=== PATIENT | female | born 1985 | race Caucasian/White ===

== ENCOUNTER 2023-10-20 18:58 | Inpatient (IN) | payer OTHER, SELFPAY ==
[2023-10-20] VITALS (9 sets, daily range): BP systolic 83–124; BP diastolic 34–58; BMI 31.5; BMI 31.4
--- NOTE | 2023-10-20 12:56 | ED.GENMED ---
History of Present Illness
<Chey Barcenas PA-C - Last Filed: 10/20/23 21:11>
General
Chief Complaint: Abdominal Pain
Source: patient
Exam Limitations: none
Time Seen by Provider: 10/20/23 12:53
Nursing documentation reviewed up to this point in time: agreed with
Travel History
Have you had any contact with someone who has COVID-19?: No
Do you have any symptoms of coronavirus? Fever > 100 degrees, chills, cough, shortness of breath, sore throat, loss of taste or smell, muscle aches, or headache?: No
History of Present Illness
History of Present Illness:
Patient is a 38-year-old female presenting for evaluation of abdominal pain. Patient initially noticed abdominal pain yesterday afternoon around 4 PM while watching one of her children's baseball games. She endorses sharp stabbing pain around her
bellybutton. Symptoms persisted throughout the evening but she was able to get some sleep overnight. This morning, patient states pain became much more severe and migrated to the right lower quadrant. She endorses acute onset nausea and frequent
vomiting few hours ago. She reports chills, no known fever. Patient denies any chest pain, shortness of breath, diarrhea, constipation, or urinary symptoms.
Patient is currently on her menstrual period. No history of ovarian cysts.
Review of Systems
<Chey Barcenas PA-C - Last Filed: 10/20/23 21:11>
Review of Systems
Allergies reviewed?: Yes
All Other Systems: ROS reviewed and negative except as documented in HPI and ROS
Phy Exam
<Chey Barcenas PA-C - Last Filed: 10/20/23 21:11>
Physical Exam
Physical Exam:
Vitals: Patient's vital signs are stable. Afebrile
General: Patient is uncomfortable appearing, writhing in pain. Nontoxic-appearing
Skin: Warm and dry, no rashes or lesions
Head: Normocephalic, atraumatic
Eyes: Sclera nonicteric. EOMs intact. No nystagmus.
Throat: Protecting airway
Neck: Normal ROM, no cervical spine tenderness, no meningismus
Cardiac: Regular rate and rhythm, no murmurs.
Pulm: Normal respiratory effort, no wheezes, rales, rhonchi heard on exam.
Abdomen: Abdomen soft. Moderate to severe abdominal tenderness in right lower quadrant at McBurney's point with voluntary guarding. No CVA tenderness
Extremities: No evidence of cyanosis or edema. Good distal pulses
Neuro: AAOx3. CN II-XII intact. No focal neurologic deficits.
Psychiatric: Normal affect.
Course
<Chey Barcenas PA-C - Last Filed: 10/20/23 21:11>
Orders/Labs/Results
Orders:
Orders
10/20/23 Breakfast
Clear Liquid
At Your Request: Full Participation
Does patient need a safe tray?: No
10/20/23 13:04
0.9% Sodium Chloride 1000 ml [Nss] 1,000 ml IV BOLUS
Morphine Sulfate 2 mg IV NOW STA
Ondansetron Injectable [Zofran] 4 mg IV NOW STA
Test Result ONCE
10/20/23 13:06
CT Abd/Pel (IV only)-DH only Urgent
Comment:
Reason For Exam: RLQ pain +N/V
10/20/23 13:08
Complete Blood Count/With Diff Urgent
Comprehensive Metabolic Panel Urgent
Fentanyl, Urine Urgent
HCG, Serum Qualitative Screen Urgent
Lipase Urgent
Manual Differential Urgent
Urinalysis Reflex To Culture Urgent
Date Specimen was Collected: 10/20/23
Time Specimen was Collected: 13:07
Urine Drug Abuse Screen Urgent
Date Specimen was Collected: 10/20/23
Time Specimen was Collected: 13:07
Urine Microscopic Reflex Cult Urgent
10/20/23 13:23
Morphine Sulfate 2 mg IV NOW STA
10/20/23 14:16
0.9% Sodium Chloride 1000 ml [Nss] 1,000 ml IV BOLUS
HYDROmorphone [Dilaudid] 1 mg IV NOW STA
Ondansetron Injectable [Zofran] 4 mg IV NOW STA
10/20/23 15:57
Ketorolac [Toradol] 15 mg IV NOW STA
10/20/23 18:02
STOOL [C difficile Antigen & Toxins] Urgent
MARY JANE Source: Feces/Stool
Specimen Description:
Stool Culture Urgent
MARY JANE Source: Feces/Stool
Specimen Description:
Stool For WBC Urgent
MARY JANE Source: Feces/Stool
Specimen Description:
10/20/23 18:03
Norovirus by PCR Urgent
MARY JANE Source: Feces/Stool
Specimen Description:
10/20/23 18:23
Blood Culture Q30M
MARY JANE Source: Blood/Venous
Specimen Description:
Blood Culture Q30M
MARY JANE Source: Blood/Venous
Specimen Description:
10/20/23 18:34
Admit/Transfer Patient As Directed
Co-Sign Provider:
Level of Care: Inpatient admission
Assign to:: Medical/Surgical
Physician / Group: Amira
Diagnosis: Intactable Abdominal Pain, SIRS
Reason for Hospitalization: IV pain meds, IV abx
Expected length of stay greater than two midnights?: Yes
ELOS- Estimated Length of Stay in days: 3
I certify the patient meets the requirements for IP care: Yes
Code Status As Directed
Resuscitation Status: Full Code
10/20/23 18:58
Add On- LAB Urgent
Tests Added?: urine drug screen
10/20/23 20:39
0.9% Sodium Chloride 1000 ml [Nss] 1,000 ml IV 100 mls/hr
Acetaminophen [Tylenol] 650 mg PO Q4HPRN PRN
HYDROmorphone [Dilaudid] 0.25 mg IV Q3HPRN PRN
Ondansetron Injectable [Zofran] 4 mg IV Q6HPRN PRN
10/20/23 20:39
Activity As Directed
Activity Level: Out of Bed-Early Mobility
With Assistance
I&O [Intake/ Output] As Directed
Frequency: q12h
Pneumatic Compression Sleeves As Directed
Type: Knee high
Vital Signs As Directed
Frequency: Per unit guidelines
DX Deep Vein Thrombosis Video Routine
10/20/23 22:00
Ketorolac [Toradol] 15 mg IV Q6HPRN PRN
Piperacillin/Tazo 3.375 Gram [Zosyn] 3.375 gram in 50 ml IV Q6H
10/21/23 06:00
Basic Metabolic Panel IN AM
Complete Blood Count/No Diff IN AM
Magnesium IN AM
10/21/23 08:00
Pantoprazole [Protonix IV] 40 mg IV DAILY
Abnormal Lab Results
10/20/23
13:08
WBC 23.8 H 10^3/uL
(4.8-10.8)
MCV 78.6 L fL
(81.0-99.0)
Abs Neuts (Manual) 22.8 H 10^3/uL
(1.4-6.5)
Segmented Neutrophils 89 H %
(42-75)
Band Neutrophils 7 H %
(0-3)
Lymphocytes (Manual) 2 L %
(20-51)
Monocytes (Manual) 1 L %
(2-9)
Glucose 108 H mg/dl
(70-99)
Urine Ketones 1+ A
(Negative)
Ur Occult Blood Reflex 2+ A
(Negative)
Leukocyte Esterase Rfl Trace A
(Negative)
Urine RBC 3-6 A /HPF
(0-2)
Urine Bacteria (Reflex) Few A
(Negative)
Urine Opiates Screen Positive H
(Negative)
Ur Barbiturates Screen Positive H
(Negative)
10/20/23 13:08
10/20/23 13:08
Vital Signs
Initial and Last Documented VS:
Initial Vital Signs
Temp Pulse Resp BP Pulse Ox
98.8 F 99 24 95/56 99
10/20/23 12:34 10/20/23 12:34 10/20/23 12:34 10/20/23 12:34 10/20/23 12:34
Last Documented Vital Signs
Temp Pulse Resp BP Pulse Ox
98.3 F 74 16 124/58 96
10/20/23 20:24 10/20/23 20:24 10/20/23 20:24 10/20/23 20:24 10/20/23 20:24
<Josh Peña, DO - Last Filed: 10/20/23 14:18>
Orders/Labs/Results
Orders:
Orders
10/20/23 Breakfast
Clear Liquid
At Your Request: Full Participation
Does patient need a safe tray?: No
10/20/23 13:04
0.9% Sodium Chloride 1000 ml [Nss] 1,000 ml IV BOLUS
Morphine Sulfate 2 mg IV NOW STA
Ondansetron Injectable [Zofran] 4 mg IV NOW STA
Test Result ONCE
10/20/23 13:06
CT Abd/Pel (IV only)-DH only Urgent
Comment:
Reason For Exam: RLQ pain +N/V
10/20/23 13:08
Complete Blood Count/With Diff Urgent
Comprehensive Metabolic Panel Urgent
Fentanyl, Urine Urgent
HCG, Serum Qualitative Screen Urgent
Lipase Urgent
Manual Differential Urgent
Urinalysis Reflex To Culture Urgent
Date Specimen was Collected: 10/20/23
Time Specimen was Collected: 13:07
Urine Drug Abuse Screen Urgent
Date Specimen was Collected: 10/20/23
Time Specimen was Collected: 13:07
Urine Microscopic Reflex Cult Urgent
10/20/23 13:23
Morphine Sulfate 2 mg IV NOW STA
10/20/23 14:16
0.9% Sodium Chloride 1000 ml [Nss] 1,000 ml IV BOLUS
HYDROmorphone [Dilaudid] 1 mg IV NOW STA
Ondansetron Injectable [Zofran] 4 mg IV NOW STA
10/20/23 15:57
Ketorolac [Toradol] 15 mg IV NOW STA
10/20/23 18:02
STOOL [C difficile Antigen & Toxins] Urgent
MARY JANE Source: Feces/Stool
Specimen Description:
Stool Culture Urgent
MARY JANE Source: Feces/Stool
Specimen Description:
Stool For WBC Urgent
MARY JANE Source: Feces/Stool
Specimen Description:
10/20/23 18:03
Norovirus by PCR Urgent
MARY JANE Source: Feces/Stool
Specimen Description:
10/20/23 18:23
Blood Culture Q30M
MARY JANE Source: Blood/Venous
Specimen Description:
Blood Culture Q30M
MARY JANE Source: Blood/Venous
Specimen Description:
10/20/23 18:34
Admit/Transfer Patient As Directed
Co-Sign Provider:
Level of Care: Inpatient admission
Assign to:: Medical/Surgical
Physician / Group: Amira
Diagnosis: Intactable Abdominal Pain, SIRS
Reason for Hospitalization: IV pain meds, IV abx
Expected length of stay greater than two midnights?: Yes
ELOS- Estimated Length of Stay in days: 3
I certify the patient meets the requirements for IP care: Yes
Code Status As Directed
Resuscitation Status: Full Code
10/20/23 18:58
Add On- LAB Urgent
Tests Added?: urine drug screen
10/20/23 20:39
0.9% Sodium Chloride 1000 ml [Nss] 1,000 ml IV 100 mls/hr
Acetaminophen [Tylenol] 650 mg PO Q4HPRN PRN
HYDROmorphone [Dilaudid] 0.25 mg IV Q3HPRN PRN
Ondansetron Injectable [Zofran] 4 mg IV Q6HPRN PRN
10/20/23 20:39
Activity As Directed
Activity Level: Out of Bed-Early Mobility
With Assistance
I&O [Intake/ Output] As Directed
Frequency: q12h
Pneumatic Compression Sleeves As Directed
Type: Knee high
Vital Signs As Directed
Frequency: Per unit guidelines
DX Deep Vein Thrombosis Video Routine
10/20/23 22:00
Ketorolac [Toradol] 15 mg IV Q6HPRN PRN
Piperacillin/Tazo 3.375 Gram [Zosyn] 3.375 gram in 50 ml IV Q6H
10/21/23 06:00
Basic Metabolic Panel IN AM
Complete Blood Count/No Diff IN AM
Magnesium IN AM
10/21/23 08:00
Pantoprazole [Protonix IV] 40 mg IV DAILY
Abnormal Lab Results
10/20/23
13:08
WBC 23.8 H 10^3/uL
(4.8-10.8)
MCV 78.6 L fL
(81.0-99.0)
Abs Neuts (Manual) 22.8 H 10^3/uL
(1.4-6.5)
Segmented Neutrophils 89 H %
(42-75)
Band Neutrophils 7 H %
(0-3)
Lymphocytes (Manual) 2 L %
(20-51)
Monocytes (Manual) 1 L %
(2-9)
Glucose 108 H mg/dl
(70-99)
Urine Ketones 1+ A
(Negative)
Ur Occult Blood Reflex 2+ A
(Negative)
Leukocyte Esterase Rfl Trace A
(Negative)
Urine RBC 3-6 A /HPF
(0-2)
Urine Bacteria (Reflex) Few A
(Negative)
Urine Opiates Screen Positive H
(Negative)
Ur Barbiturates Screen Positive H
(Negative)
10/20/23 13:08
10/20/23 13:08
Vital Signs
Initial and Last Documented VS:
Initial Vital Signs
Temp Pulse Resp BP Pulse Ox
98.8 F 99 24 95/56 99
10/20/23 12:34 10/20/23 12:34 10/20/23 12:34 10/20/23 12:34 10/20/23 12:34
Last Documented Vital Signs
Temp Pulse Resp BP Pulse Ox
98.3 F 74 16 124/58 96
10/20/23 20:24 10/20/23 20:24 10/20/23 20:24 10/20/23 20:24 10/20/23 20:24
<Chey Barcenas PA-C - Last Filed: 10/20/23 21:11>
MDM/Problems Addressed
Differential Diagnosis Includes:
Not limited to: Appendicitis, pyelonephritis, UTI, kidney stone, ovarian cyst, viral gastroenteritis, doubt ovarian torsion
MDM/Problems Addressed:
38-year-old female presenting with acute onset right lower quadrant abdominal pain with associated nausea vomiting. Does endorse a few episodes of diarrhea. Chills but no known fever. Blood pressure soft, otherwise vital sign stable. Patient is
afebrile on arrival. Physical exam as above. Patient is very uncomfortable appearing, curled up writhing in pain on initial examination. Patient has moderate to severe tenderness of right lower quadrant at McBurney's point with voluntary
guarding. No rebound tenderness noted. Patient is perfusing well, good distal pulses. Heart regular rate and rhythm. Lungs clear bilaterally. Will check basic labs, urinalysis. Will check CT abdomen/pelvis. Morphine, Zofran, fluids. Will
closely monitor and reassess.
Labs noted. Patient has a significant leukocytosis of 23.8 with a left shift. No other clinically significant abnormalities. test negative. Urinalysis shows no signs of infection. There was some blood seen on urinalysis�although
patient is currently on her menstrual period so do not feel that this correlates clinically. CT pending. Patient remains significantly uncomfortable after morphine administration. Will give additional dose of morphine and reassess.
CT abdomen/pelvis report noted. No acute abnormalities noted within the abdomen. Appendix was visualized and noted to be normal. No abnormal findings in pelvis. Into reassess patient she remains in pain. Attending physician did give her an
additional 1 mg Dilaudid and another bag of fluids. Will trial patient on toleration of p.o. intake.
Into reassess patient. Patient does report some improvement following Dilaudid�although on repeat abdominal exam she is still significantly tender in right lower quadrant. Patient was unable to tolerate water, vomited multiple times. Did consider
checking abdominal ultrasound and pelvic ultrasound for further evaluation but after speaking with radiology radiologist does not feel studies are indicated at this time given visualization on CT. Given intractable abdominal pain and inability to
tolerate p.o. intake along with significant leukocytosis�will admit to hospitalist for further evaluation/management. Discussed with patient. Discussed with hospitalist
Chronic conditions affecting care:
N/A
Acute Exacerbation and/or Progression of Chronic Illness:
N/A
<Chey Barcenas PA-C - Last Filed: 10/20/23 21:11>
*Radiology
Radiology exam reviewed: preliminary read by ED provider and radiology read reviewed
*Pulse Oximetry
Patient hypoxic: no
*EKG
Interpreted by ED Provider?: NA
*Coil Tier Interpretation
Rate: Coil Tier- N/A
*Critical Care Note
Total Time (30-74mins, 75-104mins- exclusive of procedures): Not Applicable
<Chey Barcenas PA-C - Last Filed: 10/20/23 21:11>
Patient Management
Discussion with other providers: Hospitalist
ED Attending Note
<Chey Barcenas PA-C - Last Filed: 10/20/23 21:11>
-
Portions of this chart may have been created with voice recognition software.� Occasional wrong word or��sound alike� substitutions may have occurred due to the inherent limitations of voice recognition software.
<Josh Peña DO - Last Filed: 10/20/23 14:18>
ED Attending Note
Patient seen and examined by attending physician: Yes
I performed the substantive portion of visit, reviewed & personally made and approve the management plan that is documented in note by myself or BARB.: Yes
ED Attending Note:
Seen with PA examined independently agree with assessment and plan nausea vomiting diarrhea crampy abdominal pain, worse in the right lower abdomen white count noted CT noted report pending still looks uncomfortable after morphine we will try
weight-based Dilaudid dose, with some Zofran
Discharge Plan
Departure
Patient Disposition: Admit
Date of Disposition: 10/20/23
Time of Disposition: 17:33
Presentation/result/management discussed w/ accepting MD/DO: Hospitalist
Discharge Problem:
Intractable abdominal pain, Leukocytosis, Intractable nausea and vomiting
Interventions
Interventions:
*Risk Screen - Suicide Last Done: 10/20/23 20:28
*General Assessment Last Done: 10/20/23 13:04
*Neglect/Abuse Screening Last Done: 10/20/23 13:04
ED- Fall Risk Assessment Last Done: 10/20/23 20:05
*ED COVID-19 Vaccine History Last Done: 10/20/23 20:28
*Nursing Disposition Last Done: 10/20/23 20:05
EL-[facility] Assessment Last Done: 10/20/23 13:06
Discharge Date and Time
Discharge Date/Time: 10/20/23 20:05
[2023-10-20] MEDS: MORPHINE SULFATE 2 MG IV ×2 (13:09→13:27)
[2023-10-20] MEDS: NSS 1000 IV ×3 (13:09→22:14)
[2023-10-20] MEDS: ZOFRAN 4 MG IV ×2 (13:09→14:29)
[2023-10-20 13:20] LABS: Hematocrit 37.2 % (37.0-47.0); Mean Corp Hgb Conc. 34.9 g/dL (33.0-37.0); Mean Corpuscular Hgb 27.5 pg (27.0-31.0); Mean Corpuscular Volume 78.6 fL (81.0-99.0); Mean Platelet Volume 9.3 fL (7.4-10.4); Platelet Count 257 10^3/uL (130-400); Red Blood Cell Count 4.73 10^6/uL (4.20-5.40); Red Cell Dist. Width 12.4 % (11.5-14.5); White Blood Cell Count 23.8 10^3/uL (4.8-10.8)
[2023-10-20 13:23] LABS: Urine Albumin Trace (Neg - Trace); Urine Bilirubin Negative (Negative); Urine Character Clear (Clear); Urine Color Yellow; Urine Glucose Negative (Negative); Urine Ketone 1+ (Negative); Urine Leukocyte Trace (Negative); Urine Nitrite Negative (Negative); Urine Occult Blood 2+ (Negative); Urine Specific Gravity 1.015 (<1.030); Urine Urobilinogen Negative (Neg - 1+); Urine pH 6.5 (5.0-9.0)
[2023-10-20 13:33] LABS: HCG, Serum Qualitative Screen Negative
[2023-10-20 13:34] LABS: ALT (SGPT) 22 U/L (0-35); AST (SGOT) 31 U/L (14-36); Albumin 4.2 g/dl (3.5-5.0); Alkaline Phosphatase 93 U/L (38-126); Blood Urea Nitrogen 14 mg/dl (7-17); Calcium 9.6 mg/dl (8.4-10.2); Carbon Dioxide 24 mmol/L (22-30); Chloride 106 mmol/L (98-107); Estimated Creatinine Clearance 100 ml/min; Glucose 108 mg/dl (70-99); Lipase 52 U/L (23-300); Potassium 4.1 mmol/L (3.5-5.1); Sodium 139 mmol/L (135-145); Total Bilirubin 0.7 mg/dl (0.2-1.3); Total Protein 7.2 g/dl (6.3-8.2); eGFR > 60.00
[2023-10-20 13:39] LABS: Urine Bacteria Few (Negative)
[2023-10-20 13:48] LABS: Absolute Neutrophils -Man Diff 22.8 10^3/uL (1.4-6.5); Band Neutrophils 7 % (0-3); Lymphocytes 2 % (20-51); Segmented Neutrophils 89 % (42-75)
[2023-10-20 13:49] LABS: Metamyelocytes 1 % (-); Monocytes 1 % (2-9); Platelets Checked Yes
[2023-10-20 13:50] LABS: Normal RBC Morphology Yes; Total Cells Counted 100
[2023-10-20] MEDS: DILAUDID 1 MG IV (14:29)
[2023-10-20] MEDS: TORADOL 15 MG IV (16:12)
--- NOTE | 2023-10-20 18:20 | HPS.HSE ---
Family Physician
-
Family Physician: Charli Garber
Chief Complaint
-
Abdominal Pain
History of Present Illness
This is a 38 year old female without significant past medical history who presents to the emergency department with abdominal pain. The patient reports she started experiencing cramping pain in her right lower quadrant yesterday around 4pm. Today,
she is experiencing 10/10 RLQ abdominal pain, nausea, vomiting, and diarrhea, prompting her to present to the emergency department. The patient notes today she had sweats and chills but denies fever. She reports a recent ear infection that she is
treating with Cefdinir with 2 days left. The patient reports she is currently menstruating and that she has a history of long, heavy periods with cramping, but notes this is much worse than usual. She denies chest pain, hematemesis, hematochezia,
urinary frequency/urgency, dysuria.
Medical History
Past Medical History
Past Medical History: Reports None
Past Surgical History: Reports None
Social History
Tobacco: Non-smoker
Alcohol: None
Personal:
Family History
Family History: Not pertinent
Allergies / Home Medications
Allergies reflects when Allergies were last updated in [facility].
Home Medications with original date entered in [facility]
Allergy/Medication List:
Allergies
Allergy/AdvReac Type Severity Reaction Status Date / Time
doxycycline Allergy Severe Unknown Verified 10/20/23 12:33
Home Medications
cetirizine 10 mg tablet (Zyrtec) 10 mg PO DAILY 10/20/23
tranexamic acid 500 mg tablet 1,500 mg PO PRN PRN heavy bleeding 10/20/23
Review of Systems
-
A 12 point ROS was completed and negative except as noted: Yes
Constitutional: Reports Chills; Denies Fever
Respiratory: Denies Cough or Trouble Breathing
Cardiac: Denies Chest Pain or Palpitations
Abdomen/GI: Reports See HPI
Physical Exam
Vital Signs
Vital Signs
Temp Pulse Resp BP Pulse Ox
98.8 F 83 16 109/50 98
10/20/23 12:34 10/20/23 17:30 10/20/23 17:30 10/20/23 17:00 10/20/23 17:30
Physical Exam
General: Well Developed, Well Nourished and Other (Appears in pain)
HEENT: NormoCephalic, Anicteric and Other (Mucous Membranes are slightly dry)
Respiratory: Clear and Non Labored Respirations
Cardiac: S1/S2 and Regular Rhythm; No Tachycardia
GI: Soft and Tender (Signficant tenderness right lower quadrant with voluntary guarding)
Rectal: Deferred by Provider
Musculoskeletal: No Clubbing, No Cyanosis and No Edema
Skin: Warm and Dry
Neuro: Awake, Alert, Oriented and Nonfocal/grossly intact
Psych: Calm
Laboratory Results
-
10/20/23 13:08
10/20/23 13:08
Laboratory Results
Total Bilirubin 0.7 mg/dl (0.2-1.3) 10/20/23 13:08
AST 31 U/L (14-36) 10/20/23 13:08
ALT 22 U/L (0-35) 10/20/23 13:08
Alkaline Phosphatase 93 U/L (38-126) 10/20/23 13:08
Lipase 52 U/L (23-300) 10/20/23 13:08
Data Reviewed
-
Lab Data: Labs Reviewed by me
Impression/Plan
-
Severe Abdominal Pain with Nausea/Vomiting/Diarrhea
-Check stool studies including stool culture and stool for C Diff
-Allow clear liquids
-Continue Zofran for nausea
-Continue Toradol for moderate pain and Dilaudid for severe pain
DVT proph: SCDs
Code Status: Full COde
--- NOTE | 2023-10-20 18:31 | W.PN.UPDATE ---
Update Note
Progress Note Update
38 year old female without significant past medical history who presented to the emergency department with abdominal pain. The patient reports she started experiencing cramping pain in her right lower quadrant yesterday around 4pm. Today, she is
experiencing 10/10 RLQ abdominal pain, nausea, vomiting, and diarrhea, prompting her to present to the emergency department. The patient noted today she had sweats and chills but denies fever. She reports a recent ear infection that she is treating
with Cefdinir with 2 days left. The patient reports she is currently menstruating and that she has a history of long, heavy periods with cramping, but notes this is much worse than usual. She denies chest pain, hematemesis, hematochezia, urinary
frequency/urgency, dysuria.
A/P:
# Severe right lower Abdominal Pain with Nausea/Vomiting/Diarrhea
Check stool studies including stool culture and stool for C Diff
Allow clear liquids
Continue Zofran for nausea
Continue Toradol for moderate pain and Dilaudid for severe pain
IVF
# Leukocytosis likely reactive
But will check blood culture, cover with empiric Zosyn for now
trend WBC
DVT proph: SCDs
Code Status: Full COde
[2023-10-20 19:46] LABS: Amphetamines Negative (Negative); Opiates Positive (Negative)
[2023-10-20 19:47] LABS: Barbiturates Positive (Negative); Benzodiazepines Negative (Negative); Buprenorphine Negative (Negative); Cocaine Negative (Negative); Marijuana Negative (Negative); Methadone Negative (Negative); Methamphetamines Negative (Negative); Phencyclidine Negative (Negative); Tricyclic Antidepressants Negative (Negative)
[2023-10-20 20:06] LABS: Fentanyl, Urine Negative (Negative)
[2023-10-20] MEDS: ZOSYN 50 IV (22:14)
[2023-10-21] MEDS: ZOSYN 50 IV ×4 (04:12→21:54)
[2023-10-21 05:43] LABS: Hematocrit 31.6 % (37.0-47.0); Mean Corp Hgb Conc. 34.8 g/dL (33.0-37.0); Mean Corpuscular Hgb 27.4 pg (27.0-31.0); Mean Corpuscular Volume 78.8 fL (81.0-99.0); Mean Platelet Volume 9.3 fL (7.4-10.4); Platelet Count 228 10^3/uL (130-400); Red Blood Cell Count 4.01 10^6/uL (4.20-5.40); Red Cell Dist. Width 12.6 % (11.5-14.5); White Blood Cell Count 9.5 10^3/uL (4.8-10.8)
[2023-10-21 06:46] LABS: Blood Urea Nitrogen 12 mg/dl (7-17); Calcium 8.7 mg/dl (8.4-10.2); Carbon Dioxide 24 mmol/L (22-30); Chloride 108 mmol/L (98-107); Estimated Creatinine Clearance 89 ml/min; Glucose 89 mg/dl (70-99); Potassium 4.1 mmol/L (3.5-5.1); Sodium 138 mmol/L (135-145); eGFR > 60.00
[2023-10-21 07:00] VITALS: BP 119/60
--- NOTE | 2023-10-21 08:29 | W.PN.HOSP.TC ---
Today's Communication/Plan
-
CLD. Abx. GI eval.
Assessment / Plan
Assessment / Plan
Physical exam:
General: Well Developed, Well Nourished and No Apparent Distress
HEENT: Normocephalic, Atraumatic and Moist Mucous Membranes
Respiratory: Clear to Auscultation; Negative Wheezes, Rales or Rhonchi
Cardiac: Regular Rhythm and S1/S2
GI: Soft, tender RLQ and Nondistended
Musculoskeletal: No Clubbing, No Cyanosis and No Edema
Neuro: Awake, Alert and Oriented
Psych: Calm
A/P:
# Severe right lower Abdominal Pain with Nausea/Vomiting/Diarrhea
Check stool studies including stool culture and stool for C Diff
Allow clear liquids
Continue Zofran for nausea
Continue Toradol for moderate pain and Dilaudid for severe pain
IVF
GI consult
consider pelvic US if persists but ct abd unremarkable. Also appendix ok on ct.
# Leukocytosis likely reactive
But will check blood culture, cover with empiric Zosyn for now
trend WBC
DVT proph: SCDs
Code Status:
Full Code
Anticipated Discharge: 24 - 48 hours
Subjective/Interval History
-
Date of Service: October 21, 2023
murphy feels better overall but still abd pain persists, no fever. She has dysmenorrhea which it is usual for her.
Objective Data
-
Labs:
Laboratory Results
10/21/23
05:38
WBC 9.5
Hgb 11.0 L
Hct 31.6 L
Plt Count 228
Sodium 138
Potassium 4.1
Chloride 108 H
Carbon Dioxide 24
BUN 12
Creatinine 1.0
Glucose 89
Calcium 8.7
Vital Signs:
Vital Signs
Temp Pulse Resp BP Pulse Ox
98.3 F 73 13 108/58 95
10/20/23 23:36 10/20/23 23:36 10/20/23 23:36 10/20/23 23:36 10/20/23 23:36
[2023-10-21] MEDS: NSS (PRESERVATIVE FREE) 10 ML IV (09:00)
[2023-10-21] MEDS: PROTONIX IV 40 MG IV (09:00)
[2023-10-21] MEDS: TYLENOL 650 MG PO ×2 (09:01→18:21)
[2023-10-21] MEDS: NSS 1000 IV ×2 (09:01→21:55)
--- NOTE | 2023-10-21 12:02 | CM ---
Met with pt at bedside
Pt lives with her and 3 children(9,11,13) in a 2 story home
Independent, works FT as a teacher, drives
DME - none
SNF/HH - denies past hx
Has ride at d/c
PCP - Dr Elizabeth Garber
Pharm - [facility]
CM will follow for d/c needs
Plan -anticipate home no needs
--- NOTE | 2023-10-21 13:34 | CON.GI ---
Addendum entered and electronically signed by Korey Mcconnell MD 10/21/23 15:43:
I saw and examined the patient.
The ELECTRICAL AND INSTRUMENT ENGINEER's note was reviewed and I agree with the note.
Nausea/vomiting/diarrhea-acute onset. Likely viral gastroenteritis versus food poisoning. Clinically feeling better now. Tolerating clear liquid diet
plan
Will advance to full liquid diet. If tolerating okay to advance to low residual diet
If diarrhea continues will recommend stool studies for infection
Antiemetics as needed
Original Note:
Consultation
-
Date/Time Consultation Requested: 10/21/23 1200
Date/Time Consultation Performed: 10/21/23 1330
Requesting Provider: Dr. Goldman
Performing Provider: Dr. Mcconnell/SHAJI Jensen
Reason for Consultation: N/V/D, abd pain
Medical History
Chief Complaint / HPI
Chief Complaint: N/V/D/RLQ pain
History of Present Illness:
38-year-old female with past medical history of 'nutcracker esophagus', menorrhagia, recent sinus infection presents to the emergency room with acute onset of nausea, vomiting, diarrhea and right lower quadrant pain. Asked to evaluate for the same.
Patient states that she just finished up prednisone as well as cefdinir for sinus infection. She went to her son's baseball game had pizza at the snack shack, grapes that she packed, as well as a protein shake. Patient states the following day
she had acute onset of nausea, vomiting and diarrhea. She also developed right lower quadrant pain that was severe and stabbing. The pain persisted as well as her symptoms which proceeded to come to the emergency room. She had 1 episode of
vomiting in the ER. She had no further episodes of diarrhea since arrival. She denies any fevers, chills although she is felt hot and cold. Denies any melena, hematochezia, dysphagia or odynophagia. No early satiety or unintentional weight loss.
Her history of 'nutcracker esophagus'. Was approximately 10 years ago when she had Botox to her esophagus and [place]. She has had no issues since that time. She does use Motrin during times of her menstruation. She is currently
menstruating at this time. She also takes TXA at the time 3 pills during her time of her period daily for history of severe menorrhagia with clots. At the present time she is tolerating a clear liquid diet without any difficulty. She still has
right lower quadrant discomfort that she states is a 3 out of 10. Yesterday this was a 9 out of 10.
Past Medical History
Past Medical History: Other ('Nutcracker esophagus', menorrhagia, sinus infection)
Past Surgical History: None
Social History
Tobacco: Non-Smoker
Alcohol: None
Drug: None
Personal:
Living: With Family
Family History
Family History: Other (No family history gastrointestinal malignancy or IBD)
Allergies / Home Medications
Allergy/AdvReac Type Severity Reaction Status Date / Time
doxycycline Allergy Severe Unknown Verified 10/20/23 12:33
�Medication �Instructions �Recorded
acetaminophen 500 mg tablet 1,000 mg PO BIDPRN PRN mild pain 10/20/23
(Tylenol Extra Strength)
cefdinir 300 mg capsule 300 mg PO BID Infection 10/20/23
cetirizine 10 mg tablet 10 mg PO DAILY Allergies 10/20/23
erxjegjn-fhi-tfuf-FA-Ca carb-vit K 1 tab PO DAILY Supplement 10/20/23
18 mg iron-400 mcg-500 mg tablet
tranexamic acid 650 mg tablet 650 mg PO TID PRN taken while on 10/20/23
period
Review of Systems
-
All other systems: A 12 pt ROS was Negative except as stated above in HPI
Vital Signs
Temp Pulse Resp BP Pulse Ox
98.8 F 76 16 119/60 97
10/21/23 07:00 10/21/23 07:00 10/21/23 07:00 10/21/23 07:00 10/21/23 08:52
Physical Exam
Exam
General: No Apparent Distress
HEENT: Anicteric
Respiratory: Clear
Cardiac: Regular Rhythm
GI: Soft, Non Distended, Normal Bowel Sounds and Tender (Mild right lower quadrant tenderness)
Musculoskeletal: No Edema
Skin: Warm and Dry
Neuro: AO x 3
Psych: Calm
Results
WBC 9.5 10^3/uL (4.8-10.8) 10/21/23 05:38
Hgb 11.0 g/dL (12.0-16.0) L 10/21/23 05:38
Hct 31.6 % (37.0-47.0) L 10/21/23 05:38
MCV 78.8 fL (81.0-99.0) L 10/21/23 05:38
Plt Count 228 10^3/uL (130-400) 10/21/23 05:38
Sodium 138 mmol/L (135-145) 10/21/23 05:38
Potassium 4.1 mmol/L (3.5-5.1) 10/21/23 05:38
Chloride 108 mmol/L (98-107) H 10/21/23 05:38
Carbon Dioxide 24 mmol/L (22-30) 10/21/23 05:38
BUN 12 mg/dl (7-17) 10/21/23 05:38
Creatinine 1.0 mg/dL (0.6-1.0) 10/21/23 05:38
Calcium 8.7 mg/dl (8.4-10.2) 10/21/23 05:38
Total Bilirubin 0.7 mg/dl (0.2-1.3) 10/20/23 13:08
AST 31 U/L (14-36) 10/20/23 13:08
ALT 22 U/L (0-35) 10/20/23 13:08
Alkaline Phosphatase 93 U/L (38-126) 10/20/23 13:08
Lipase 52 U/L (23-300) 10/20/23 13:08
Diagnostic Image Results:
CT abdomen and pelvis with IV contrast:
IMPRESSION:
The appendix is normal. There is no acute inflammatory process within the abdomen or pelvis. No bowel wall thickening. No bowel obstruction.
No renal or ureteral calculus and no obstructive uropathy.
Trace free fluid in the pelvis, likely physiologic.
Electronically signed by Magdy Castorena MD, 10/20/2023 2:18 PM
Prior GI Procedures:
EGD: 10 years ago [place] 'nutcracker esophagus treated with Botox'
Colonoscopy: 10 years ago [place] 'normal'.
Assessment / Plan
-
38-year-old female with past medical history of 'nutcracker esophagus', menorrhagia, recent sinus infection presents to the emergency room with acute onset of nausea, vomiting, diarrhea and right lower quadrant pain. Asked to evaluate for the same.
Patient states that she just finished up prednisone as well as cefdinir for sinus infection. She went to her son's baseball game had pizza at the snack shack, grapes that she packed, as well as a protein shake. Patient states the following day
she had acute onset of nausea, vomiting and diarrhea. She also developed right lower quadrant pain that was severe and stabbing. The pain persisted as well as her symptoms which proceeded to come to the emergency room. She had 1 episode of
vomiting in the ER. She had no further episodes of diarrhea since arrival. Initially WBC was 23.8 now down to 9.5, hemoglobin 11.0, hematocrit 31.6, platelets 228, bands 7, sodium 138, potassium 4.1, chloride 108, CO2 24, BUN 12, creatinine 1.0,
glucose 89, total bilirubin 0.7, AST 31, ALT 22, alk phos 93, lipase 52, hCG negative.
Impression:
Nausea/vomiting/diarrhea
Right lower quadrant abdominal pain
Menorrhagia on TXA
Plan:
-Continue clear liquids as tolerated, advance as tolerated
-If with diarrhea check stool studies
-Trend labs
-Await blood culture
-Further recommendations to be forthcoming
-
-
Thank you for consultation and allowing me to participate in the patient's care. Please call the promotional model GI physician during the after hours with any questions or concerns.
[2023-10-21 15:00] VITALS: BP 123/75
[2023-10-21 23:11] VITALS: BP 115/41
[2023-10-22] MEDS: ZOSYN 50 IV ×2 (04:14→09:05)
[2023-10-22 06:24] LABS: % Basophils 0.9 % (0-2); % Eosinophils 2.4 % (0-6); % Immature Granulocytes 0.4 % (0-0.5); % Lymphocytes 22.4 % (20.5-51.1); % Monocytes 10.8 % (1.7-9.3); % Neutrophils 63.1 % (42.2-75.2); Absolute Basophils 0.1 10^3/uL (0-0.2); Absolute Eosinophils 0.1 10^3/uL (0-0.7); Absolute Lymphocytes 1.2 10^3/uL (1.2-3.4); Absolute Monocytes 0.6 10^3/uL (0.1-0.6); Absolute Neutrophils 3.4 10^3/uL (1.4-6.5); Hematocrit 33.2 % (37.0-47.0); Hemoglobin 11.2 g/dL (12.0-16.0); Mean Corp Hgb Conc. 33.7 g/dL (33.0-37.0); Mean Corpuscular Hgb 27.5 pg (27.0-31.0); Mean Corpuscular Volume 81.6 fL (81.0-99.0); Mean Platelet Volume 9.6 fL (7.4-10.4); Nucleated Red Blood Cells % 0 %; Platelet Count 199 10^3/uL (130-400); Red Blood Cell Count 4.07 10^6/uL (4.20-5.40); Red Cell Dist. Width 12.3 % (11.5-14.5); White Blood Cell Count 5.4 10^3/uL (4.8-10.8)
[2023-10-22 06:38] LABS: Blood Urea Nitrogen 10 mg/dl (7-17); Calcium 9.1 mg/dl (8.4-10.2); Carbon Dioxide 23 mmol/L (22-30); Chloride 110 mmol/L (98-107); Estimated Creatinine Clearance 89 ml/min; Glucose 95 mg/dl (70-99); Sodium 139 mmol/L (135-145); eGFR > 60.00
[2023-10-22 07:00] VITALS: BP 127/71
[2023-10-22] MEDS: PROTONIX IV 40 MG IV (07:48)
[2023-10-22] MEDS: NSS (PRESERVATIVE FREE) 10 ML IV (07:49)
[2023-10-22] MEDS: NSS 1000 IV (07:49)
--- NOTE | 2023-10-22 08:54 | W.PN.HOSP.TC ---
Today's Communication/Plan
-
d/c planning today
Assessment / Plan
Assessment / Plan
Physical exam:
General: Well Developed, Well Nourished and No Apparent Distress
HEENT: Normocephalic, Atraumatic and Moist Mucous Membranes
Respiratory: Clear to Auscultation; Negative Wheezes, Rales or Rhonchi
Cardiac: Regular Rhythm and S1/S2
GI: Soft, Non tender and Nondistended
Musculoskeletal: No Clubbing, No Cyanosis and No Edema
Neuro: Awake, Alert and Oriented
Psych: Calm
A/P:
# Severe right lower Abdominal Pain with Nausea/Vomiting/Diarrhea
Check stool studies including stool culture and stool for C Diff
Low rsidue diet
Continue Zofran for nausea
Continue Toradol for moderate pain and Dilaudid for severe pain
IVF
GI consult appreciated
Also appendix ok on ct.
Plan d/c today
# Leukocytosis likely reactive
But will check blood culture, cover with empiric Zosyn for now--> can stop now
trend WBC
DVT proph: SCDs
Code Status:
Full Code
Anticipated Discharge: Today
Subjective/Interval History
-
Date of Service: October 22, 2023
pte feels well, no n/v/abd pain
Objective Data
-
Labs:
Laboratory Results
10/22/23
05:49
WBC 5.4
Hgb 11.2 L
Hct 33.2 L
Plt Count 199
Sodium 139
Potassium 4.0
Chloride 110 H
Carbon Dioxide 23
BUN 10
Creatinine 1.0
Glucose 95
Calcium 9.1
Vital Signs:
Vital Signs
Temp Pulse Resp BP Pulse Ox
98.3 F 75 18 127/71 99
10/22/23 07:00 10/22/23 07:00 10/22/23 07:00 10/22/23 07:00 10/22/23 08:00
I&O
10/21/23 10/22/23 10/23/23
06:59 06:59 06:59
Intake Total 620 / 620
Balance 620 / 620
--- NOTE | 2023-10-22 11:45 | W.PN.GI.CBS2 ---
Today's Communication / Plan
-
pt symptoms now resolving --infectious ? norovirus, gastroenteritis vs other
CT on admission with normal appendix as severe pain RLQ
feeling improved
advancing to low residue diet
consider discharge if tolerating
sent message to GI office to establish care
advised to call if any further problems after discharge
Assessment / Plan
-
38-year-old female with past medical history of 'nutcracker esophagus', menorrhagia, recent sinus infection presents to the emergency room with acute onset of nausea, vomiting, diarrhea and right lower quadrant pain. Asked to evaluate for the same.
Patient states that she just finished up prednisone as well as cefdinir for sinus infection. She went to her son's baseball game had pizza at the snack shack, grapes that she packed, as well as a protein shake. Patient states the following day
she had acute onset of nausea, vomiting and diarrhea. She also developed right lower quadrant pain that was severe and stabbing. The pain persisted as well as her symptoms which proceeded to come to the emergency room. She had no further
episodes of diarrhea since arrival. Initially WBC was 23.8 now down to 9.5, hemoglobin 11.0, hematocrit 31.6, platelets 228, bands 7, sodium 138, potassium 4.1, chloride 108, CO2 24, BUN 12, creatinine 1.0, glucose 89, total bilirubin 0.7, AST 31,
ALT 22, alk phos 93, lipase 52, hCG negative.
Impression:
Nausea/vomiting/diarrhea
Right lower quadrant abdominal pain
Menorrhagia on TXA
leukocytosis ? steroid related with recent use
Plan:
pt symptoms now resolving --infectious ? norovirus, gastroenteritis vs other
CT on admission with normal appendix as severe pain RLQ
feeling improved
advancing to low residue diet
consider discharge if tolerating
sent message to GI office to establish care
advised to call if any further problems after discharge
Subjective
Subjective
Date of Service: October 22, 2023
feeling much better asking about discharge advancing to low residue diet
Objective
Data Reviewed
Laboratory Data:
Laboratory Results
10/22/23 05:49
10/22/23 05:49
Laboratory Results
Magnesium 2.0 mg/dl (1.6-2.3) 10/21/23 05:38
Total Bilirubin 0.7 mg/dl (0.2-1.3) 10/20/23 13:08
AST 31 U/L (14-36) 10/20/23 13:08
ALT 22 U/L (0-35) 10/20/23 13:08
Alkaline Phosphatase 93 U/L (38-126) 10/20/23 13:08
Lipase 52 U/L (23-300) 10/20/23 13:08
Vital Signs and I&O:
Vital Signs
Temp Pulse Resp BP Pulse Ox
98.3 F 75 18 127/71 99
10/22/23 07:00 10/22/23 07:00 10/22/23 07:00 10/22/23 07:00 10/22/23 08:00
I&O
10/21/23 10/22/23 10/23/23
06:59 06:59 06:59
Intake Total 620 / 620
Balance 620 / 620
Physical Exam
Physical Exam
HEENT: Anicteric and Moist mucous membranes
Cardiology: Normal Sinus Rhythm
Pulmonary: Clear
GI: Soft, Non Distended and Non Tender
Extremities: No Edema
Neuro: Non Focal
--- NOTE | 2023-10-22 12:15 | W.DCSUMMARY ---
Discharge Summary
Discharge Data
Date of Admission: 10/20/23
Date of Discharge: 10/22/23
-
Pending Results: No
Hospital Course
Patient 38 years old female history of dysmenorrhea, nutcracker esophagus, presented to the hospital abdominal pain nausea vomiting and diarrhea. Patient was treated with supportive care. She was also given IV Zosyn but later on discontinued. CT
scan of the abdomen unremarkable. Labs unremarkable. GI was consulted and they felt it was gastroenteritis related. She was able to tolerate diet and her symptom subsided substantially. She can follow-up with GI as outpatient. Otherwise she is
hemodynamically stable, symptoms free, and eager to go home today. She will be discharged in stable condition today.
Discharge Plan
-
Patient Disposition: Home (Routine Discharge)
Discharge Diagnosis/Procedures: Gastroentertitis
Diet: Low Cholesterol
Activity: As tolerated
Driving Restrictions: As prior to admission
Blood Work: PCP to order CBC, BMP within 1 week
Referrals:
Charli Garber MD [Family Provider] - in less than 1 week
Pamela Armendariz PA-C [Specified Professional Personl] - 01/02/24 11:30 am
(call GI office to confirm appointment.
Please call to reschedule if you can not keep this appointment. If your insurance requires a referral please contact your primary care physician prior to your appointment. )
Prescriptions:
Continued
cetirizine 10 mg Tablet
10 mg PO DAILY
acetaminophen [Tylenol Extra Strength] 500 mg Tablet
1,000 mg PO BIDPRN PRN (Reason: mild pain)
tranexamic acid 650 mg Tablet
650 mg PO TID PRN (Reason: taken while on period)
Patient Comments:
10/20/2023, per pt., she takes this med. roughly 7-10 days out of every month while on her period.
to-ac-jvpy-FA-Ca carb-vit K 18 mg iron-400 mcg-500 mg Tablet
1 tab PO DAILY
Discontinued
cefdinir 300 mg Capsule
300 mg PO BID
Patient Comments:
10/20/2023, filled on 10/11/2023 and instructed to take one capsule BID for 10 days. Pt. has 3 capsules left to take.
Discharge Orders:
Discharge Patient (As Directed); Ordered 10/22/23
Ordered By: dEi Goldman
Discharge Date and Time
Discharge Date/Time: 10/22/23 14:53
Print Language: CZECH
--- NOTE | 2023-10-22 12:46 | CM ---
Case management following for d/c planning
Pt for d/c today
Has ride home
Plan - home no needs
[2023-10-22 14:37] VITALS: BP 120/62
== END 2023-10-22 14:53 | disposition home or self-care (01) | DRG 392 ==
LOC: 3 WEST ACU 18:58
PROVIDERS: Physician Assistant; Physician Assistant Medical; ADMITTING PHYSICIAN Internal Medicine; ATTENDING PHYSICIAN Hospitalist; CONSULT PHYSICIAN Internal Medicine Gastroenterology; EMERGENCY PHYSICIAN Emergency Medicine; FAMILY PHYSICIAN Family Medicine
DX: A08.4 Viral intestinal infection, unspecified (principal); N92.0 Excessive and frequent menstruation with regular cycle; D72.829 Elevated white blood cell count, unspecified
CPT/HCPCS: 74177; 80048; 80053; 80306; 80307; 81003; 81015; 83690; 83735; 84703; 85025; 85027; 87040; 96361; 96374; 96375; 96376; 99285; Q9967